=== PATIENT | male | born 1980 | race Caucasian/White ===

== ENCOUNTER → 2016-04-06 | Outpatient (REF) ==
--- NOTE | 2016-04-06 14:17 | REP ---
Clinical: Pain and disability. Technique: AP, lateral, cone down views of the lumbosacral spine. Findings: Alignment and lordosis maintained. Vertebral bodies and disc spaces are relatively well maintained and normal for age. No acute fracture / compression injury or subluxation. Transverse processes and spinous processes appear intact and normal. Impression: Age-related changes suggested. Signed by Ankit Gamble MD 04/06/2016 02:09 P
== END ==
LOC: M SMT 13:31
PROVIDERS: ATTEND Internal Medicine
DX: Z02.1 Encounter for pre-employment examination (principal)